=== PATIENT | female | born 1990 | race Caucasian/White ===

== ENCOUNTER 2016-10-19 06:32 | Emergency (ER) | payer MEDICAID ==
[~2016-10-19] VITALS: Ht 160 cm; Wt 70.5 kg
[2016-10-19 06:35] VITALS: TEMP 100.8
[2016-10-19] MEDS ORDERED: PRENATABS FA1 TAB PO (06:57)
[2016-10-19] MEDS ORDERED: ZOLOFT 100MG100 MG PO (06:57)
[2016-10-19] MEDS ORDERED: AMOXICILLIN 8751 TAB PO (07:48)
[2016-10-19 08:05] LABS: PH 6 (5-8); URINE APPEARANCE Hazy; URINE BACTERIA None Seen /hpf; URINE BILIRUBIN Negative (NEGATIVE); URINE BLOOD Negative (NEGATIVE); URINE COLOR Yellow; URINE GLUCOSE Negative (NEGATIVE); URINE KETONE Negative (NEGATIVE); URINE RBC 0-2 /hpf; URINE UROBILINOGEN >=4.0 mg/dL (NEGATIVE); URINE WBC 0-2 /hpf
[2016-10-19] MEDS ORDERED: PROAIR HFA0.09 MG/AC IH (08:32)
[2016-10-19 08:49] VITALS: BP 122/75; PULSE 100
== END 2016-10-19 08:49 | disposition home or self-care (01) ==
LOC: COL.ER 06:32
PROVIDERS: Emergency Medicine
DX: O99.511 Diseases of the respiratory system complicating pregnancy, first trimester (principal); J32.9 Chronic sinusitis, unspecified; O99.89 Other specified diseases and conditions complicating pregnancy, childbirth and the puerperium; H66.93 Otitis media, unspecified, bilateral; Z3A.01 Less than 8 weeks gestation of pregnancy
CPT/HCPCS: J8540